=== PATIENT | female | born 2000 | race Caucasian/White ===

== ENCOUNTER 2020-02-07 19:53 | Emergency (ER) | payer MEDICAID, OTHER ==
[~2020-02-07] VITALS: Ht 165.1 cm; Wt 58.4 kg
[~2020-02-07 19:53] MED LIST: IBUP-1984 PO
[2020-02-07] MEDS ORDERED: PRED20TA PO (21:24)
[2020-02-07 21:37] VITALS: BP 99/62
== END 2020-02-07 21:38 | disposition home or self-care (01) ==
LOC: ER 19:53
DX: R21 Rash and other nonspecific skin eruption (principal); R60.9 Edema, unspecified; Z72.89 Other problems related to lifestyle; Z79.899 Other long term (current) drug therapy
CPT/HCPCS: 99283

== ENCOUNTER 2020-10-06 14:56 | Emergency (ER) | payer MEDICAID ==
[~2020-10-06] VITALS: Ht 165.1 cm; Wt 59.8 kg
[2020-10-06 15:20] VITALS: BP 112/81
[2020-10-06] MEDS ORDERED: PENI250T2 PO (16:53)
[2020-10-06] MEDS ORDERED: AMOX1TAB87 PO (17:17)
== END 2020-10-06 17:21 | disposition home or self-care (01) ==
LOC: ER 14:57
DX: K08.89 Other specified disorders of teeth and supporting structures (principal); Z72.89 Other problems related to lifestyle; Z79.2 Long term (current) use of antibiotics; Z79.899 Other long term (current) drug therapy
CPT/HCPCS: 99283

== ENCOUNTER 2020-11-13 13:06 | Emergency (ER) | payer MEDICAID ==
[~2020-11-13] VITALS: Ht 165.1 cm; Wt 60.5 kg
[2020-11-13 15:42] VITALS: BP 126/67
[2020-11-13 16:00] LABS: CLARITY,URINE CLEAR (Clear); COLOR,URINE YELLOW (Yellow); GLUCOSE, URINE NEGATIVE (Neg); KETONES,URINE NEGATIVE (Neg); LEUKOCYTE ESTERASE ,URINE NEGATIVE (Neg); NITRITES, URINE NEGATIVE (Neg); OCCULT BLOOD,URINE NEGATIVE (Neg); PROTEIN,URINE NEGATIVE (Neg); URINE HCG NEGATIVE (NEG); UROBILINOGEN,URINE 0.2 E.U/dL (0.2-1.0)
[2020-11-13 16:02] LABS: UA COLLECTION TYPE CLN CATCH MIDSTREAM
[2020-11-13 16:08] LABS: BASOPHILS % (AUTO) 0.5 % (0-1); EOSINOPHILS # (AUTO) 0.1 X10'3 (0-0.9); EOSINOPHILS % (AUTO) 0.9 % (0-6); HEMOGLOBIN 13.6 g/dl (12.0-16.0); LYMPHOCYTES # (AUTO) 2.3 X10'3 (1.1-4.8); LYMPHOCYTES % (AUTO) 28.6 % (21-51); MEAN CORPUSCULAR HEMOGLOBIN 30.9 PG (27.0-31.0); MEAN CORPUSCULAR HGB CONC 34.1 g/dL (33.0-36.5); MEAN CORPUSCULAR VOLUME 90.7 FL (78-98); MEAN PLATELET VOLUME 10.9 FL (7.4-10.4); MONOCYTES # (AUTO) 0.5 X10'3 (0-0.9); MONOCYTES % (AUTO) 6.3 % (2-12); NEUTROPHILS % (AUTO) 63.7 % (42-75); PLATELET COUNT 258 X10'3 (140-440); RED BLOOD COUNT 4.41 X10'6 (4.20-5.60); RED CELL DISTRIBUTION WIDTH 12.7 % (11.5-14.5); WHITE BLOOD COUNT 7.9 X10'3 (4.5-11.0)
[2020-11-13] MEDS ORDERED: IBUP-1984 PO (16:29)
== END 2020-11-13 18:20 | disposition home or self-care (01) ==
LOC: ER 13:07
DX: N93.9 Abnormal uterine and vaginal bleeding, unspecified (principal); Z72.89 Other problems related to lifestyle; Z79.899 Other long term (current) drug therapy
CPT/HCPCS: 81003; 81025; 85025; 99284

== ENCOUNTER 2020-11-23 12:51 | Emergency (ER) | payer MEDICAID ==
[~2020-11-23] VITALS: Ht 165.1 cm; Wt 58.5 kg
[2020-11-23 13:29] VITALS: BP 105/61
== END 2020-11-23 15:49 | disposition home or self-care (01) ==
LOC: ER 12:52
DX: N93.9 Abnormal uterine and vaginal bleeding, unspecified (principal); Z72.89 Other problems related to lifestyle; Z79.899 Other long term (current) drug therapy
CPT/HCPCS: 99281

== ENCOUNTER 2021-03-19 13:23 | Emergency (ER) | payer MEDICAID ==
[~2021-03-19] VITALS: Ht 165.1 cm; Wt 59.0 kg
[2021-03-19] MEDS ORDERED: IBUP-1984 PO (15:46)
[2021-03-19] MEDS ORDERED: CYCL-1 PO (15:47)
[2021-03-19] MEDS ORDERED: ketorolac tromethamine 15mg/ml inj. IM ONE (15:50)
[2021-03-19 16:20] VITALS: BP 119/73
== END 2021-03-19 16:24 | disposition home or self-care (01) ==
LOC: ER 13:23
DX: N64.4 Mastodynia (principal); R07.89 Other chest pain
CPT/HCPCS: 96372; 99283; J1885

== ENCOUNTER 2024-04-23 23:10 | Emergency (ER) | payer MEDICAID ==
[~2024-04-23] VITALS: Ht 167.6 cm; Wt 73.0 kg
[~2024-04-23 23:10] MED LIST changes: +CYCL-1 PO
[2024-04-23] MEDS ORDERED: NO HOME MEDS (23:53)
[2024-04-24] MEDS ORDERED: HYDR-3686 PO
[2024-04-24] MEDS ORDERED: CEPH500C2 PO
[2024-04-24] MEDS ORDERED: KEN0.1O TOP
[2024-04-24 00:11] VITALS: BP 111/67; PULSE 75; RESP 16; TEMP 98.4; O2SAT 99
== END 2024-04-24 00:08 | disposition home or self-care (01) ==
LOC: ER 23:11
DX: S61.452A Open bite of left hand, initial encounter (principal); L23.9 Allergic contact dermatitis, unspecified cause; Z72.89 Other problems related to lifestyle; Z79.2 Long term (current) use of antibiotics; Z79.899 Other long term (current) drug therapy; W64.XXXA Exposure to other animate mechanical forces, initial encounter; Y93.89 Activity, other specified; Y92.89 Other specified places as the place of occurrence of the external cause; Y99.8 Other external cause status
CPT/HCPCS: 99283

== ENCOUNTER 2025-01-18 02:56 | Emergency (ER) | payer BC, MEDICAID ==
[~2025-01-18] VITALS: Ht 165.1 cm; Wt 63.2 kg
[~2025-01-18 02:56] MED LIST changes: -CYCL-1 PO; -IBUP-1984 PO; +NO HOME MEDS
--- NOTE | 2025-01-18 03:53 | Physician Documentation ---
HPI ~ General Chief Complaint: Tooth Problem Stated Complaint: TOOTH PAIN Time Seen by MD: 03:53 Primary Medical Doctor: [facility] History of Present Illness HPI Comment 24-year-old female presenting with tooth pain and a headache. She tells me that she has a chronically broken tooth with dental pain in the right lower posterior jaw. Recently at has been hurting more than normal, she reports sharp shooting electric type pain. She also reports increased swelling to her jaw and cheek. She states that tonight the pain was severe, and triggered a migraine. She normally takes Imitrex, but does not currently have any. No fevers. No neck swelling. No difficulty swallowing or breathing. Medication Reconciliation Allergies: Coded Allergies: No Known Allergies (Unverified , 03/19/21) Scheduled Amox Tr/Potassium Clavulanate (Augmentin 875-125 Tablet), 1 TAB PO Q12H Miscellaneous Medications Home Med List (No Home Medications), (Reported) Past Medical History Past Medical History: No Pertinent History Past Surgical History: no surgical history Alcohol Use: Sober Drug Use: none Lives with: Family Lives In: Home Occupation: student Review of Systems Constitutional: Denies: fever ENT: Reports: mouth pain; Denies: throat pain Physical Exam Vital Signs: Temperature: 98.5, Source: Oral, Heart Rate: 78, Respiratory Rate: 16, BP: 104/71, Pulse Oximetry: 98, Weight: 63.250 Oxygen Flow Rate: 0 Physical Exam General: This is a pleasant but uncomfortable appearing young female, tearful, partner at bedside HEENT: Atraumatic, oropharynx is moist. Conjunctiva injected, she is tearful. Generally poor dentition. In the right posterior jaw, there is a broken molar with a sharp edge. There is some mild surrounding swelling to the gums, but no periapical abscess. The patient also has some general swelling around the right jaw and cheek externally, with no overlying skin changes. Heart: Regular rate and rhythm, normal-appearing peripheral perfusion Lungs: normal work of breathing, normal oxygen saturation on room air Neuro: Alert and oriented, no focal deficits Psychiatric: Appears uncomfortable, is tearful, but cooperative Progress Results/Orders Results/Orders Completed Orders - GERRY BOWLES MD Ketorolac Trometh 15mg/Ml Vial (Toradol (01/18/25 04:05) Acetaminophen 325mg Tablet (Tylenol Tabl (01/18/25 04:05) Sumatriptan Tablet (Imitrex Tablet) (01/18/25 04:05) Sumatriptan Succ. Inj. (Imitrex 6mg Inj. (01/18/25 05:25) Amox Tr/Potassium Clavulanate (Augmentin (01/18/25 05:35) Medications Received in ER Medications (Trade) Dose Ordered Sig/Naa Route PRN Reason Start Time Stop Time Status Last Admin Dose Admin (Toradol injection) 15 mg ONCE ONCE IM 01/18/25 04:05 01/18/25 04:06 DC 01/18/25 04:07 15 MG (Tylenol tablet) 975 mg ONCE ONCE PO 01/18/25 04:05 01/18/25 04:06 DC 01/18/25 04:08 975 MG (Imitrex 6mg inj.) 6 mg ONCE ONCE SQ 01/18/25 05:25 01/18/25 05:26 DC 01/18/25 05:29 6 MG (Augmentin 875-125mg tablet) 1 tab ONCE ONCE PO 01/18/25 05:35 01/18/25 05:36 DC 01/18/25 05:38 1 TAB Vital Signs 01/18/25 01/18/25 03:05 05:44 Temp 98.5 98.6 Pulse 78 72 Resp 16 16 B/P (MAP) 104/71 110/70 Pulse Ox 98 99 O2 Flow Rate 0 Re-Evaluation Re-Evaluation : Re-Evaluation: Improved Progress On re-evaluation after treatment, the patient is feeling much improved and would like to go home. Medical Decision Making Differential Dx:Considerations: Include: Alveolar fracture, Alveolar osteitis, Facial Cellulitis, Periapical abscess, Tooth Fracture Additional Comment Differential includes migraine or tension headache Assessment The patient presents with dental pain and a headache. On exam she does have a fractured tooth. She was given topical numbing medication. She also has findings consistent with a dental infection and cellulitis related to the tooth. This is likely triggering in the worsening pain. She will be treated with Augmentin. She also has a migraine that was triggered by her dental pain. She was given Imitrex and Toradol. Following this she felt much improved. I feel she is safe for discharge home with ongoing symptomatic treatment. She already has an appointment with a dentist. Departure Time of Disposition: 05:28 Disposition: 01 HOME / SELF CARE / HOMELESS Impression: Primary Impression: Toothache Additional Impression: Migraine Condition: Improved Discharge Instructions: Dental Pain Referrals: NO PRIMARY CARE PROVIDER (PCP) Prescriptions Amox Tr/Potassium Clavulanate (Augmentin 875-125 Tablet) 1 Each Tablet 1 TAB PO Q12H for 7 Days, #14 TAB Prov: GERRY BOWLES MD 01/18/25 Education Educated: Patient Educated regarding: diagnosis, treatment Signature Scribe Signature: alicia Attestation: GERRY Saba MD January 18, 2025 03:53
[2025-01-18] MEDS ORDERED: SUMAtriptan 25 MG tablet PO ONE (04:05)
[2025-01-18] MEDS: ketorolac trometh 15mg/ml vial 15 MG/ML ML IM ONE (04:07)
[2025-01-18] MEDS: acetaminophen 325mg tablet PO ONE (04:08)
[2025-01-18] MEDS: SUMAtriptan succ. 6 MG/0.5ml vial SQ ONE (05:29)
[2025-01-18] MEDS ORDERED: AMOX-117 PO (05:36)
[2025-01-18] MEDS: amox tr/potassium clavulanate 875/125mg TAB PO ONE (05:38)
[2025-01-18 05:44] VITALS: BP 110/70; PULSE 72; RESP 16; TEMP 98.6; O2SAT 99
== END 2025-01-18 05:46 | disposition home or self-care (01) ==
LOC: ER 02:57
DX: K08.89 Other specified disorders of teeth and supporting structures (principal); G43.909 Migraine, unspecified, not intractable, without status migrainosus
CPT/HCPCS: 96372; 99284; J1885; J3030

== ENCOUNTER 2025-03-04 18:17 | Emergency (ER) | payer MEDICAID, OTHER ==
[~2025-03-04] VITALS: Ht 167.6 cm; Wt 64.8 kg
[2025-03-04 18:27] VITALS: BP 107/69; PULSE 85; RESP 16; O2SAT 97
--- NOTE | 2025-03-04 18:54 | Physician Documentation ---
History of Present Illness ~ Chief Complaint: Laceration Stated Complaint: RIGHT FINGER LAC Time Seen by MD: 18:54 Primary Medical Doctor: [facility] Patient presents to the emergency room with laceration to her ring finger on her left hand. She cut it on a broken plate at work. No other injuries reported. No numbness or weakness reported. Tetanus reported to be up-to-date Tetanus Within 5 Years: Yes Medication Reconciliation Allergies: Coded Allergies: No Known Allergies (Unverified , 03/04/25) Scheduled Clindamycin HCl (Clindamycin HCl), 1 CAP PO Q6H, (Reported) Scheduled PRN Sumatriptan Succinate* (Imitrex Tab*), 4 TAB PO PRN PRN for headache, (Reported) Discontinued Medications Home Med List (No Home Medications), (Reported) Discontinued Reason: Other Past Medical History Past Medical History: No Pertinent History Past Surgical History: no surgical history Last Menstrual Period: Feb 21, 2025 Alcohol Use: Sober Drug Use: none Lives with: Family Lives In: Home Occupation: student Review of Systems ROS All review of systems negative except as per HPI Physical Exam Vital Signs: Temperature: 97.3, Source: Temporal, Heart Rate: 85, Respiratory Rate: 16, BP: 107/69, Pulse Oximetry: 97, Weight: 64.850 Oxygen Flow Rate: 0 Physical Exam General: Patient is awake, alert, oriented x4 in no acute distress and well appearing.~ Head: Normocephalic and atraumatic. Eyes: Conjunctival normal. EOMI. PERRL. ENT: Mucous membranes moist. Neck: Supple, trachea is midline. Chest: Clear to auscultation bilaterally without rales, rhonchi, or wheezes. There is no accessory muscle use or retractions. Cardiac: RRR without murmurs, gallops, or rubs. Extremities: U shaped 2 cm full-thickness laceration to the dorsal aspect of patient's left ring finger between the MP joint and PIP joint with no active bleeding. Movements intact Procedures Procedure Note Laceration repair: Status post informed verbal consent patient was sterilely cleaned and draped. 1% lidocaine with epinephrine was utilized to anesthetize patient with 1 cc. Patient was then thoroughly irrigated and wound approximated using 4-0 Ethilon and placing three simple interrupted sutures. Patient tolerated procedure well without complication total time of procedure 7 minutes. Progress Results/Orders Results/Orders Orders - WILLIAN VARGHESE MD Dressing Orders (03/04/25 18:57) Wound Care Orders (03/04/25 18:57) Completed Orders - WILLIAN VARGHESE MD Lidocaine/Epi/Tetracaine Top (Lidocaine/ (03/04/25 18:35) Bacitracin Ointment (Bacitracin Ointment (03/04/25 19:00) Lidocaine 1% W/Epi 1:100,000 (Xylocaine (03/04/25 19:00) Medications Received in ER Medications (Trade) Dose Ordered Sig/Naa Route PRN Reason Start Time Stop Time Status Last Admin Dose Admin (bacitracin ointment) 1 applic ONCE ONCE TP 03/04/25 19:00 03/04/25 19:01 DC 03/04/25 19:14 1 APPLIC Vital Signs 03/04/25 18:27 Temp 97.3 Pulse 85 Resp 16 B/P (MAP) 107/69 Pulse Ox 97 O2 Flow Rate 0 Medical Decision Making Findings Patient presented to the emergency room with laceration as per HPI. Differentials include but are not limited to laceration, tendinous injury, arterial injury. Physical exam is reassuring and simple closure was performed. He had not suspect tendinous injury or vascular injury. The need to have sutures removed as well as wound care discussed. Departure Disposition: HOME / SELF CARE / HOMELESS Impression: Primary Impression: Laceration Condition: Stable Discharge Instructions: Laceration Care, Adult, [id number] Additional Instructions: Clean daily with soap and water. Keep covered with Band-Aid and some antibiotic ointment. Have sutures removed in 7-10 days by any health care provider Referrals: NO PRIMARY CARE PROVIDER (PCP) Prescriptions Ibuprofen* (Motrin*) 400 Mg Tablet 800 MG PO Q8H, #30 TAB Prov: WILLIAN VARGHESE MD 03/04/25 Education Educated: Patient Educated regarding: diagnosis, treatment, need for follow up Signature Scribe Signature: No scribe Attestation: The note accurately reflects work and decisions made by me.Willian Varghese MD 03/04/25 19:37 WILLIAN VARGHESE MD Mar 04, 2025 18:54
[2025-03-04] MEDS ORDERED: CLIN300C71 PO (18:55)
[2025-03-04] MEDS ORDERED: SUMA25TA35 PO (18:55)
[2025-03-04] MEDS: LIDOcaine/epinephrine/tetracaine TOPICAL sol 3 ML syringe TOP ONE (19:00)
[2025-03-04] MEDS: bacitracin 15gm ointment TP ONE (19:14)
[2025-03-04] MEDS: LIDOcaine 1% W/epiNEPHrine 1:100,000 20ml vial IJ ONE (19:14)
[2025-03-04] MEDS ORDERED: IBUP-1984 PO (19:37)
[2025-03-04 19:52] VITALS: TEMP 97.3
== END 2025-03-04 19:53 | disposition home or self-care (01) ==
LOC: ER 18:17
DX: S61.215A Laceration without foreign body of left ring finger without damage to nail, initial encounter (principal); F10.90 Alcohol use, unspecified, uncomplicated; W45.8XXA Other foreign body or object entering through skin, initial encounter; Y93.89 Activity, other specified; Y92.89 Other specified places as the place of occurrence of the external cause; Y99.8 Other external cause status; Y90.9 Presence of alcohol in blood, level not specified
CPT/HCPCS: 12001; 99282; J7030; A6258; A6449